=== PATIENT | male | born 1945 | race Caucasian/White ===

== ENCOUNTER 2017-05-28 08:12 | Emergency (ER) | payer MEDICARE ==
[~2017-05-28] VITALS: Ht 170.2 cm; Wt 97.5 kg
[~2017-05-28 08:12] MED LIST: BENI5TAB4 PO; ECOT81TA2; SYNT25TA PO
[2017-05-28 08:24] VITALS: BP 152/72; PULSE 76; RESP 18; TEMP 98.1; O2SAT 97
[2017-05-28] MEDS ORDERED: AMLO5CAP3 PO (08:34)
[2017-05-28] MEDS ORDERED: ASPI81CH7 CHEW (08:34)
[2017-05-28] MEDS ORDERED: LEVO50TA4 PO (08:34)
[2017-05-28 08:49] LABS: BASOPHIL % 0.4 % (0.0-2.0); EOSINOPHIL % 0.1 % (0.0-4.0); HEMATOCRIT 41.8 % (39.0-51.0); HEMOGLOBIN 13.7 GM/DL (13.0-17.0); LYMPH % 10.7 % (9.0-44.0); LYMPHOCYTE # 0.6 TH/MM3 (1.0-4.8); MEAN CELL VOLUME 87.9 FL (80.0-100.0); MEAN CORPUSCULAR HEMOGLOBIN 28.9 PG (27.0-34.0); MEAN CORPUSCULAR HGB CONC 32.8 % (32.0-36.0); MEAN PLATELET VOLUME 7.6 FL (7.0-11.0); MONO % 6.6 % (0.0-8.0); MONOCYTE # 0.4 TH/MM3 (0-0.9); NEUT % 82.2 % (16.0-70.0); PLATELET COUNT 222 TH/MM3 (150-450); RED BLOOD COUNT 4.75 MIL/MM3 (4.50-5.90); RED CELL DISTRIBUTION WIDTH 13.5 % (11.6-17.2)
[2017-05-28 08:58] LABS: CHLORIDE 97 MEQ/L (98-107); SODIUM (NA) 129 MEQ/L (136-145)
[2017-05-28 09:01] LABS: ALBUMIN 3.6 GM/DL (3.4-5.0); BICARBONATE 24.5 MEQ/L (21.0-32.0); BLOOD UREA NITROGEN 14 MG/DL (7-18); CALCIUM 8.4 MG/DL (8.5-10.1); GLUCOSE,RANDOM 143 MG/DL (74-106)
[2017-05-28 09:04] LABS: ALT (GPT) 25 U/L (12-78); AST (GOT) 25 U/L (15-37); GLOMERULAR FILTRATION RATE 54 ML/MIN (>89)
[2017-05-28 09:06] LABS: TOTAL BILIRUBIN ADULT 0.7 MG/DL (0.2-1.0); TOTAL PROTEIN 7.6 GM/DL (6.4-8.2)
[2017-05-28 09:07] LABS: ALKALINE PHOSPHATASE 43 U/L (45-117)
--- NOTE | 2017-05-28 09:08 | PD ---
HPI Chief Complaint: Syncope/Near-Syncope Time Seen by Provider: 08:52 Travel History International Travel<30 days: No Contact w/Intl Traveler<30days: No Traveled to known affect area: No History of Present Illness HPI This patient complains of having a syncopal episode. For the last 3 days he has been feeling generalized weakness and malaise. He has had urinary frequency and urgency. He denies fever or chest pain. He woke up this morning and went to the bathroom. He came back to the bedroom and sat on his bed. He was feeling lightheaded and clammy. He had a syncopal episode and fell backwards onto the bed. He reports that he had a syncopal episode last month as well. [place] Symptom severity was moderate. No alleviating factors. No exacerbating factors. He does have a pacemaker. He does not know the specifics of why he has a pacemaker other than his electrical system of his heart was not working correctly. He denies coronary artery disease. PFSH Past Medical History Arthritis: No Asthma: No Autoimmune Disease: No Blood Disorders: No Anxiety: No Depression: No Heart Rhythm Problems: Yes (PACEMAKER PLACED 08-04-06) Cancer: No Cardiovascular Problems: Yes (MITRAL VLAVE PROLAPSE) High Cholesterol: Yes (BOARDERLINE) Chemotherapy: No Chest Pain: Yes Congestive Heart Failure: No COPD: No Cerebrovascular Accident: No Diabetes: No Diminished Hearing: No Endocrine: No Gastrointestinal Disorders: No GERD: No Glaucoma: No Genitourinary: Yes Headaches: Yes Hepatitis: No Hiatal Hernia: No Hypertension: Yes Immune Disorder: No Kidney Stones: Yes Musculoskeletal: Yes (R FOOT BUNION) Neurologic: Yes (HEAD INJUREY MARCH 2006 FELL OFF ROOF) Psychiatric: No Reproductive: No Respiratory: No Migraines: No Myocardial Infarction: Yes Radiation Therapy: No Renal Failure: No Seizures: No Sickle Cell Disease: No Sleep Apnea: No Thyroid Disease: Yes Ulcer: No Influenza Vaccination: No Past Surgical History Abdominal Surgery: Yes (HERNIA REPAIR) AICD: No Appendectomy: No Arteriovenous Shunt: No Cardiac Surgery: Yes (PACEMAKER - 2006) Cholecystectomy: No Ear Surgery: No Endocrine Surgery: No Eye Surgery: No Genitourinary Surgery: No Gynecologic Surgery: No Insulin Pump: No Joint Replacement: No Oral Surgery: No Pacemaker: Yes ([employer] - [id number] - 2006) Thoracic Surgery: No Other Surgery: Yes (PROSTATE) Social History Alcohol Use: Yes (OCCAS) Tobacco Use: No Substance Use: No Allergies-Medications (Allergen,Severity, Reaction): Coded Allergies: sulfamethoxazole (Unverified Allergy, Severe, FAINTED, 05/28/17) trimethoprim (Unverified Allergy, Severe, FAINTED, 05/28/17) Reported Meds & Prescriptions Reported Meds & Active Scripts Active Reported Amlodipine-Benazepril 5-20 Mg Cap 1 Cap PO DAILY Aspirin Children's (Aspirin) 81 Mg Chew 81 Mg CHEW DAILY Levothyroxine (Levothyroxine Sodium) 50 Mcg Tab 50 Mcg PO DAILY Review of Systems General / Constitutional: No: Fever Eyes: No: Visual changes HENT: Positive: Lightheadedness, No: Headaches Cardiovascular: Positive: Syncope, No: Chest Pain or Discomfort Respiratory: No: Shortness of Breath Gastrointestinal: No: Abdominal Pain Genitourinary: No: Dysuria Musculoskeletal: Positive: Weakness, No: Pain Skin: No Rash Neurologic: Positive: Weakness, Dizziness, Syncope Psychiatric: No: Depression Endocrine: No: Polydipsia Hematologic/Lymphatic: No: Easy Bruising Physical Exam Narrative GENERAL: Well-nourished, well-developed patient in no apparent distress. SKIN: Focused skin assessment reveals no rash and nodules. Skin is Warm and dry. HEAD: Atraumatic. Normocephalic. EYES: Pupils equal and round. No scleral icterus. No injection or drainage. ENT: No nasal bleeding or discharge. Mucous membranes pink and moist. NECK: Trachea midline. No JVD. CARDIOVASCULAR: Regular rate and rhythm. No murmur appreciated. RESPIRATORY: No accessory muscle use. Clear to auscultation. Breath sounds equal bilaterally. GASTROINTESTINAL: Abdomen soft, non-tender, nondistended. Hepatic and splenic margins not palpable. MUSCULOSKELETAL: No obvious deformities. No clubbing. No cyanosis. No edema. NEUROLOGICAL: Awake and alert. No obvious cranial nerve deficits. Motor grossly within normal limits. Normal speech. PSYCHIATRIC: Appropriate mood and affect; insight and judgment normal. Data Data Last Documented VS Vital Signs Date Time Temp Pulse Resp B/P (MAP) Pulse Ox O2 Delivery O2 Flow Rate FiO2 05/28/17 12:36 68 18 106/67 (80) 97 Room Air 05/28/17 08:24 98.1 Orders Orders Electrocardiogram (3/30/18 08:29) Complete Blood Count With Diff (05/28/17 08:29) Comprehensive Metabolic Panel (05/28/17 08:29) Iv Access Insert/Monitor (05/28/17 08:29) Medical Record Librarian / Telemetry [id number].[id number] (05/28/17 09:00) Urinalysis - C+S If Indicated (05/28/17 09:00) Cath For Specimen (05/28/17 11:24) Sodium Chlor 0.9% 1000 Ml Inj (Ns 1000 M (05/28/17 13:00) Labs Laboratory Tests Test 05/28/17 08:35 05/28/17 11:45 White Blood Count 6.0 TH/MM3 Red Blood Count 4.75 MIL/MM3 Hemoglobin 13.7 GM/DL Hematocrit 41.8 % Mean Corpuscular Volume 87.9 FL Mean Corpuscular Hemoglobin 28.9 PG Mean Corpuscular Hemoglobin Concent 32.8 % Red Cell Distribution Width 13.5 % Platelet Count 222 TH/MM3 Mean Platelet Volume 7.6 FL Neutrophils (%) (Auto) 82.2 % Lymphocytes (%) (Auto) 10.7 % Monocytes (%) (Auto) 6.6 % Eosinophils (%) (Auto) 0.1 % Basophils (%) (Auto) 0.4 % Neutrophils # (Auto) 5.0 TH/MM3 Lymphocytes # (Auto) 0.6 TH/MM3 Monocytes # (Auto) 0.4 TH/MM3 Eosinophils # (Auto) 0.0 TH/MM3 Basophils # (Auto) 0.0 TH/MM3 CBC Comment DIFF FINAL Differential Comment Blood Urea Nitrogen 14 MG/DL Creatinine 1.30 MG/DL Random Glucose 143 MG/DL Total Protein 7.6 GM/DL Albumin 3.6 GM/DL Calcium Level 8.4 MG/DL Alkaline Phosphatase 43 U/L Aspartate Amino Transf (AST/SGOT) 25 U/L Alanine Aminotransferase (ALT/SGPT) 25 U/L Total Bilirubin 0.7 MG/DL Sodium Level 129 MEQ/L Potassium Level 4.2 MEQ/L Chloride Level 97 MEQ/L Carbon Dioxide Level 24.5 MEQ/L Anion Gap 8 MEQ/L Estimat Glomerular Filtration Rate 54 ML/MIN Urine Collection Type CLEAN CATCH Urine Color YELLOW Urine Turbidity CLEAR Urine pH 6.0 Urine Specific [place] LESS/EQUAL 1.005 Urine Protein NEG mg/dL Urine Glucose (UA) NEG mg/dL Urine Ketones NEG mg/dL Urine Occult Blood TRACE Urine Nitrite NEG Urine Bilirubin NEG Urine Urobilinogen 0.2 MG/DL Urine Leukocyte Esterase NEG Urine RBC 0-3 /hpf Urine WBC 0-2 /hpf Urine Squamous Epithelial Cells 0-5 /hpf Microscopic Urinalysis Comment CULT NOT INDICATED Urine Collection Time 11:45 [facility] Medical Decision Making Medical Screen Exam Complete: Yes Emergency Medical Condition: Yes Medical Record Reviewed: Yes Differential Diagnosis Cardiac arrhythmia, vasovagal episode,Dehydration Narrative Course I have reviewed the patient's electronic medical record. He was here in 2009 for chest pain. IV placed and labs sent He is getting telemetry monitoring which at this point shows sinus rhythm I reviewed his EKG which shows sinus rhythm. He has a first-degree AV block. He has deep Q waves in lead III but not II Patient is neurologically intact. I have called the [employer] rep to interrogate his pacer. The pacer is functioning fine and there have been no dangerous arrhythmias CBC is normal Metabolic profile reveals some hyponatremia I gave him a liter of normal saline IV I ambulated him about the department and he walks without unsteadiness or symptoms Stable for outpatient follow-up Diagnosis Primary Impression: Syncope Qualified Codes: R55 - Syncope and collapse Additional Impression: Hyponatremia Additional Instructions: The patient was advised to follow up with their physician and return if they worsen. Med/Other Pt SpecificInfo: Other Disposition: 01 DISCHARGE HOME Condition: Stable Shemar Rodriguez MD May 28, 2017 09:08
--- NOTE | 2017-05-28 10:29 | EKG ---
Date Performed: 05/28/2017 Time Performed: 08:46:56 PTAGE: 72 years EKG: Sinus rhythm WITH SINUS ARRHYTHMIA WITH FIRST DEGREE AV BLOCK INFERIOR MYOCARDIAL INFARCTION ABNORMAL ECG PREVIOUS TRACING : 06/06/2014 12.07 Compared to the prior study, sinus rhythm with first degree block has replaced paced rhythm. DOCTOR: Tomi Paz Interpretating Date/Time 05/28/2017 10:27:26
[2017-05-28 11:59] LABS: BILIRUBIN, URINE NEG (NEG); BLOOD, URINE TRACE (NEG); GLUCOSE,URINE NEG (NEG); KETONE, URINE NEG (NEG); NITRITE,URINE NEG (NEG); URINE COLOR YELLOW (YELLW/STRAW); URINE LEUKOCYTE ESTERASE NEG (NEG)
[2017-05-28 12:13] LABS: RBC, URINE 0-3 /hpf (0-3); SQUAMOUS EPITHELIAL CELL URINE 0-5 /hpf (0-5); WBC, URINE 0-2 /hpf (0-5)
[2017-05-28 12:36] VITALS: BP 106/67; PULSE 68; RESP 18; O2SAT 97
[2017-05-28] MEDS ORDERED: SODIUM CHLOR 0.9% 1000 ML INJ 1,000 ML IV ONE (13:00)
[2017-05-28 13:58] VITALS: BP 140/72
[2017-05-28 14:37] VITALS: TEMP 100.4
== END 2017-05-28 14:38 | disposition home or self-care (01) ==
LOC: PHED 08:12
DX: R55 Syncope and collapse (principal); E87.1 Hypo-osmolality and hyponatremia; I49.8 Other specified cardiac arrhythmias; I44.0 Atrioventricular block, first degree; I25.2 Old myocardial infarction; R94.31 Abnormal electrocardiogram [ECG] [EKG]; E78.00 Pure hypercholesterolemia, unspecified; I10 Essential (primary) hypertension; Z95.0 Presence of cardiac pacemaker
CPT/HCPCS: 80053; 81001; 85025; 93005; 96360; 99284; J7030